=== PATIENT | male | born 1955 | race Caucasian/White ===

== ENCOUNTER 2020-10-10 13:45 | Observation (INO) ==
[2020-10-10] MEDS ORDERED: SODIUM CHLORIDE 0.9% 1,000 ML IV STA (14:35)
[2020-10-10] MEDS ORDERED: ONDANSETRON 4 MG/2 ML VIAL IV STA (14:35)
[2020-10-10 15:13] LABS: Basophils % 0.1 % (0.0-0.8); Eosinophils % 0.1 % (0.00-10.9); Hematocrit 45.3 VOL% (42.0-52.0); Hemoglobin 15.8 GM/DL (14.0-18.0); Immature Granulocytes % 1.3 %; Immature Granulocytes Absolute 0.22 #; Lymphocytes # 1.7 10*3/uL (1.4-4.0); Lymphocytes % 9.6 % (21.2-54.2); Mean Corpuscular HGB Conc 34.9 GM/DL (32-36); Mean Corpuscular Volume 91.9 FL (87-102); Mean Platelet Volume 8.3 FL (9.6-12.0); Monocytes % 4.5 % (1.7-12.7); Neutrophils % 84.4 % (38.7-73.9); Platelet Count 163 T/CUMM (130-400); Red Blood Count 4.93 MC/CUMM (3.8-5.5); Red Cell Distribution Width 12.7 % (9.3-17.3); White Blood Count 17.5 T/CUMM (4-12)
[2020-10-10 15:24] LABS: INR 1.1; PT Patient Result 11.3 SECS (9.8-11.9)
[2020-10-10 15:44] LABS: Albumin 2.7 G/DL (3.4-5.0); Bilirubin,Total 0.5 MG/DL (0.2-1.0); Calcium 8.5 MG/DL (8.5-10.1); Ferritin 602.6 ng/ml (26-388); Total Protein 6.5 G/DL (6.4-8.3)
[2020-10-10] MEDS ORDERED: DEXTROSE 50% 25 GM/50 ML VIAL IV PRN (17:18)
[2020-10-10] MEDS ORDERED: GLUCAGON 1 MG VIAL IM PRN (17:18)
[2020-10-10] MEDS ORDERED: ONDANSETRON 4 MG/2 ML VIAL IV PRN (17:18)
[2020-10-10] MEDS: ENOXAPARIN 40 MG/0.4 ML SYRINGE SUBCUT SCH (21:50)
[2020-10-10] MEDS: ASCORBIC ACID 500 MG TABLET PO SCH (21:58)
[2020-10-10] MEDS: ACETAMINOPHEN 325 MG TABLET PO PRN (21:59)
[2020-10-10 22:20] LABS: Bilirubin,Urine Negative (Negative); Blood, Urine Negative (Negative); Glucose,Urine (UA) >=500 mg/dL (Negative); Ketones,Urine Negative (Negative); Nitrite,Urine Negative (Negative); Protein,Urine Negative; RBC,Urine 1 /HPF (0-4); Urine Appearance CLEAR (Clear); Urine Color Yellow (Yellow); Urine Specific Gravity 1.021 (1.001-1.035)
[2020-10-11 06:30] LABS: Basophils % 0.2 % (0.0-0.8); Eosinophils % 0.2 % (0.00-10.9); Hematocrit 45.7 VOL% (42.0-52.0); Hemoglobin 15.7 GM/DL (14.0-18.0); Immature Granulocytes Absolute 0.13 #; Lymphocytes % 15.6 % (21.2-54.2); Mean Corpuscular HGB Conc 34.4 GM/DL (32-36); Mean Corpuscular Volume 94.2 FL (87-102); Mean Platelet Volume 8.6 FL (9.6-12.0); Monocytes % 3.5 % (1.7-12.7); Neutrophils % 79.5 % (38.7-73.9); Platelet Count 159 T/CUMM (130-400); Red Blood Count 4.85 MC/CUMM (3.8-5.5); Red Cell Distribution Width 12.8 % (9.3-17.3)
[2020-10-11 06:49] LABS: Calcium 8.6 MG/DL (8.5-10.1); Osmolality,Calculated 271.4 MOS/KG (273-304)
[2020-10-11] MEDS: ASPIRIN CHEW 81 MG TABLET PO SCH (08:07)
[2020-10-11] MEDS: ASCORBIC ACID 500 MG TABLET PO SCH ×2 (08:08→20:54)
[2020-10-11] MEDS: AZITHROMYCIN 250 MG TABLET PO SCH (08:08)
[2020-10-11] MEDS ORDERED: SODIUM POLYSTYRENE SULFATE 15 GM/60 ML BOTTLE PO STA (10:23)
[2020-10-11] MEDS: ACETAMINOPHEN 325 MG TABLET PO PRN (11:11)
[2020-10-11] MEDS: ENOXAPARIN 40 MG/0.4 ML SYRINGE SUBCUT SCH (20:54)
[2020-10-12] MEDS: ALBUTEROL INHALER 18 GM INH SCH ×3 (00:57→14:19)
[2020-10-12 05:59] LABS: Basophils % 0.3 % (0.0-0.8); Eosinophils # 0.2 10*3/uL (0.0-0.87); Eosinophils % 2.2 % (0.00-10.9); Hematocrit 46.9 VOL% (42.0-52.0); Hemoglobin 15.8 GM/DL (14.0-18.0); Immature Granulocytes % 1.6 %; Immature Granulocytes Absolute 0.11 #; Lymphocytes # 1.9 10*3/uL (1.4-4.0); Lymphocytes % 28.4 % (21.2-54.2); Mean Corpuscular HGB Conc 33.7 GM/DL (32-36); Mean Corpuscular Volume 94.4 FL (87-102); Mean Platelet Volume 8.7 FL (9.6-12.0); Monocytes % 7.8 % (1.7-12.7); Neutrophils % 59.7 % (38.7-73.9); Platelet Count 165 T/CUMM (130-400); Red Blood Count 4.97 MC/CUMM (3.8-5.5); Red Cell Distribution Width 12.6 % (9.3-17.3); White Blood Count 6.8 T/CUMM (4-12)
[2020-10-12 06:34] LABS: Calcium 8.7 MG/DL (8.5-10.1); Ferritin 815.6 ng/ml (26-388)
[2020-10-12] MEDS: ASCORBIC ACID 500 MG TABLET PO SCH (08:54)
[2020-10-12] MEDS: ASPIRIN CHEW 81 MG TABLET PO SCH (08:54)
[2020-10-12] MEDS: AZITHROMYCIN 250 MG TABLET PO SCH (08:54)
[2020-10-12] MEDS ORDERED: ZINC GLUCONATE 50 MG TABLET PO SCH (09:00)
[2020-10-12] MEDS ORDERED: PANTOPRAZOLE 40 MG TABLET PO SCH (09:00)
[2020-10-12 11:17] VITALS: BP 117/79
== END 2020-10-12 14:55 | disposition home or self-care (01) ==
LOC: N.ED 13:45 → N.EDINP 16:51 → INTOOBSV 16:51 → N.2E 17:40
PROVIDERS: ADMIT Family Medicine; ATTEND Family Medicine